=== PATIENT | female | born 1965 | race Caucasian/White ===

== ENCOUNTER → 2017-10-23 05:00 | Outpatient (REF) | payer MEDICARE, SELFPAY ==
[2017-10-23 08:06] LABS: Anion Gap 8 (5-15); BUN 20 mg/dL (7-18); BUN/Creat Ratio 29.2 RATIO (10-20); Calcium,Total 9.5 mg/dL (8.5-10.1); Chloride 105 mmol/L (98-107); Creatinine, Serum 0.69 mg/dL (0.55-1.02); EST Glomerular Filtration Rate 96 mL/min (>60); Est Glom Filt Rate - Afr Amer 116 mL/min (>60); Glucose 92 mg/dL (74-106); Potassium 3.5 mmol/L (3.5-5.1); Sodium Level 144 mmol/L (136-145)
== END ==
LOC: OLS.WCC 05:00
PROVIDERS: Visit Provider Family Medicine
DX: Z79.899 Other long term (current) drug therapy (principal); F03.90 Unspecified dementia, unspecified severity, without behavioral disturbance, psychotic disturbance, mood disturbance, and anxiety
CPT/HCPCS: 36415; 80048

== ENCOUNTER 2018-04-29 22:16 | Emergency (ER) | payer MEDICARE, SELFPAY ==
[2018-04-29 22:17] VITALS: BP 140/80; PULSE 107; RESP 14; TEMP 36.6; O2SAT 98; BMI 23.7
--- NOTE | 2018-04-29 22:56 | ED.DCSUM_ITS ---
- ER Visit Summary Date of Service: 04/29/18 Chief Complaint: [] G-tube came out History of Present Illness: The patient is a 52 F per the senior care and patient's caregiver the patient's G-tube came out this evening. They noticed that as they give her tube feeds in the evening. The patient is nonverbal due to mental retardation. The G-tube has been in chronically. Physical Examination: [] Vital signs reviewed General: Well-nourished well-developed chronic contractures Head: Normocephalic atraumatic Eyes: Pupils equal round and reactive to light extraocular movements intact ENT: TMs clear no hemotympanum no trauma Neck: Nontender full range of motion Cardiovascular: Regular rate rhythm no murmurs normal S1-S2 Respiratory: No distress clear to auscultation bilaterally chest nontender Abdomen: Soft nontender nondistended normal bowel sounds no masses a G-tube site clean dry and intact Back: Nontender no CVA tenderness Extremities: Nontender active range of motion ?4 extremities no trauma Skin: Normal color no trauma Neuro alert and comfortably with spasticity Test Results: [] Emergency Department Course and Treatment: [] G-tube was easily replaced. The patient will be discharged back to her facility. there is no complications. Treatment Plan: [] Disposition: [] Impression: [] G-tube dislodgment with new G-tube insertion This note was generated with [employer] dictation software. It may contain incorrect words, spelling, and punctuation that were not noted in review of the chart prior to signing ED Disposition - Plan for ED Patient: Chief Complaint: Other, Pain/Inj Referrals: Terell Cat MD [Primary Care Provider] -
--- NOTE | 2018-04-29 22:56 | ED.DEP ---
ED Disposition - Plan for ED Patient: Disposition: Home or Assisted Living Chief Complaint: Other, Pain/Inj Instructions: Gastrostomy Feeding Tube Care: [place] Referrals: Terell Cat MD [Primary Care Provider] -
--- OUTSIDE RECORDS SUMMARY | 2018-07-01 23:59 | XMS RPT_ITS ---
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 Community (current) drug Hospital therapy / Repository Z79.899(ICD-10) PROCEDURES PROCEDURES No Procedure Records FoundRESULTS RESULTS EMERGENCY DEPARTMENT Observed: 04/30/2018 Status: F Source: [place] SUMMARY 5:44 AM [facility] H[facility]PITAL REPOSITORY [facility] Medical Records Department [address] [place] [address] Emergency Department Summary 04/29/18 2255 MR#: [id number] Acct: [id number] Name: NETTE HEALY Rep #: [id number] : 1965 52 From: Lester Norman MD PCP: Terell Cat MD Status: DEP ER - ER Visit Summary Date of Service: 04/29/18 Chief Complaint: [] G-tube came out History of Present Illness: The patient is a 52 F per the half-way and patient's caregiver the patient's G-tube came out this evening. They noticed that as they give her tube feeds in the evening. The patient is nonverbal due to mental retardation. The G-tube has been in chronically. Physical Examination: [] Vital signs reviewed General: Well-nourished well-developed chronic contractures Head: Normocephalic atraumatic Eyes: Pupils equal round and reactive to light extraocular movements intact ENT: TMs clear no hemotympanum no trauma Neck: Nontender full range of motion Cardiovascular: Regular rate rhythm no murmurs normal S1-S2 Respiratory: No distress clear to auscultation bilaterally chest nontender Abdomen: Soft nontender nondistended normal bowel sounds no masses a G-tube site clean dry and intact Back: Nontender no CVA tenderness Extremities: Nontender active range of motion 4 extremities no trauma Skin: Normal color no trauma Neuro alert and comfortably with spasticity Test Results: [] Emergency Department Course and Treatment: [] G-tube was easily replaced. The patient will be discharged back to her facility. there is no complications. Treatment Plan: [] Disposition: [] Impression: [] G-tube dislodgment with new G-tube insertion This note was generated with [employer] dictation software. It may contain incorrect words, spelling, and punctuation that were not noted in review of the chart prior to signing ED Disposition - Plan for ED Patient: Chief Complaint: Other, Pain/Inj Referrals: Terell Cat MD [Primary Care Provider] - What to do if you have Problems For any increased pain, shortness of breath, bleeding, nausea or vomiting, chest pain, or any unexpected problems, contact your Primary Care Provider. Call [facility] ([phone]) or report to the closest Emergency Room. Call 911 if necessary. 04/30/18 0544 <Electronically signed by Lester Norman MD> Date Lester Norman MD Cosigner Signature (If Indicated): Date CC: Terell Cat MD DISCHARGE INSTRUCTION Observed: 04/30/2018 Status: F Source: [place] 5:44 AM [facility] REPOSITORY [facility] Medical Records Department [address] [address] Discharge Instruction 04/29/18 2256 MR#: [id number] Acct: [id number] Name: NETTE HEALY Rep #: [id number] : 1965 52 From: Lester Norman MD PCP: Terell Cat MD Status: DEP ER ED Disposition - Plan for ED Patient: Disposition: Home or Assisted Living Chief Complaint: Other, Pain/Inj Instructions: Gastrostomy Feeding Tube Care: [place] Referrals: Terell Cat MD [Primary Care Provider] - What to do if you have Problems For any increased pain, shortness of breath, bleeding, nausea or vomiting, chest pain, or any unexpected problems, contact your Primary Care Provider. Call [facility] ([phone]) or report to the closest Emergency Room. Call 911 if necessary. 04/30/18 0544 <Electronically signed by Lester Norman MD> Date Lester Norman MD Cosigner Signature (If Indicated): Date CC: Terell Cat MD BASIC METABOLIC Collected: 10/23/2017 Status: F Source: [place] PROFILE (BMP) 6:21 AM [facility] REPOSITORY TYPE CODE TESTS RESULT OUT OF RANGE REFERENCE UNITS LAB L501.0100 74-106 mg/dL Normal GLU 92 Result Comment: Please note revised GLUCOSE reference range effective 2017. LAB L501.1000 7-18 mg/dL High BUN 20 LAB L501.1100 0.55-1.02 mg/dL Normal CREAT,SERUM 0.69 Result Comment: The validity of the calculated GFR AND GFRAA in patients over 70 years has not been determined. Clinical correlation is essential. LAB L501.1110 >60 mL/min Normal EST GFR 96 Result Comment: Non- GFR Calc LAB L501.1115 >60 mL/min Normal EST GFR - AA 116 Result Comment: GFR Calc LAB L501.1300 10-20 RATIO High BUN/CRE 29.2 LAB L501.2200 8.5-10.1 mg/dL CA Normal 9.5 LAB L501.5300 136-145 mmol/L NA Normal 144 LAB L501.5600 3.5-5.1 mmol/L K Normal 3.5 LAB L501.5900 98-107 mmol/L CL Normal 105 LAB L501.6100 21.0-32.0 mmol/L Normal CO2 31.0 LAB L501.6200 5-15 Normal GAP 8 Performed By: #### L500.2500 #### [facility] [address] [place], [address] ALLERGIES ALLERGIES DATE TYPE / CODE NAME / CODE REACTION SEVERITY SOURCE 04/29/2018 Drug No Known Unknown [facility] Allergy/4160 Allergies/F00 Hospital 44333(SNOMED [id number](RXNOR Repository CT) M) ENCOUNTERS ENCOUNTERS ADMIT/DISCHARGE ACCOUNT ADMITTING ENCOUNTER LOCATION SOURCE NUMBER CLASS 04/29/2018/ [id number] Emergency [facility] 9 2 [facility] ing:ED Repository 10/23/2017 [id number] Ambulatory [facility] 1 [facility] ing:[facility] Repository PAYERS PAYERS ENCOUNTER GUARANTOR PAYER SUBSCRIBER SOURCE 04/29/2018 NETTE HEALY876 Primary NETTE HEALYDOB: Monster S [id number]IN [facility] CARE Number: Chana [place] [id number] [address]Lzc: Date:[id number] CLAIMS [address] [address] [address]KH: 04/29/2018 Secondary NOT GIVENUNK [place] Insurance:SELF PAY [facility] Number: Effective Repository Date:2018-04-29 10/23/2017 Nette Beckham [id number] Primary Nette OrtizB: Monster Ruiz Insurance:[facility] [id number] acute hospital *IN [facility] Care Number: Repository CenterWmiky, [id number] [address]Vsj: Date:[id number] CLAIMS [address] ) [address] [address]UR: 10/23/2017 Secondary NOT GIVENUNK [place] Insurance:SELF PAY [facility] Number: Effective Repository Date:2017-10-23
== END 2018-04-29 23:35 | disposition home or self-care (01) ==
PROVIDERS: Emergency Provider Emergency Medicine; Family Provider Family Medicine; PCP Family Medicine
DX: K94.23 Gastrostomy malfunction (principal); Y83.3 Surgical operation with formation of external stoma as the cause of abnormal reaction of the patient, or of later complication, without mention of misadventure at the time of the procedure; F79 Unspecified intellectual disabilities
CPT/HCPCS: 43762; 99284

== ENCOUNTER → 2018-10-23 | Outpatient (REF) | payer MEDICARE, SELFPAY ==
[2018-10-23 07:51] LABS: Anion Gap 7 (5-15); BUN 17 mg/dL (7-18); BUN/Creat Ratio 26.5 RATIO (10-20); Calcium,Total 9.3 mg/dL (8.5-10.1); Chloride 103 mmol/L (98-107); Creatinine, Serum 0.64 mg/dL (0.55-1.02); EST Glomerular Filtration Rate 103 mL/min (>60); Est Glom Filt Rate - Afr Amer 125 mL/min (>60); Glucose 105 mg/dL (74-106); Potassium 3.5 mmol/L (3.5-5.1); Sodium Level 140 mmol/L (136-145)
== END | disposition home or self-care (01) ==
LOC: OLS.WCC 05:00
PROVIDERS: Visit Provider Family Medicine
DX: F03.90 Unspecified dementia, unspecified severity, without behavioral disturbance, psychotic disturbance, mood disturbance, and anxiety (principal); Z79.899 Other long term (current) drug therapy
CPT/HCPCS: 36415; 80048

== ENCOUNTER → 2019-10-23 05:00 | Outpatient (REF) | payer MEDICARE, MEDICAID, SELFPAY ==
[2019-10-23 08:40] LABS: Anion Gap 5 (5-15); BUN 21 mg/dL (7-18); BUN/Creat Ratio 33.8 RATIO (10-20); Calcium,Total 9.1 mg/dL (8.5-10.1); Chloride 103 mmol/L (98-107); Creatinine, Serum 0.62 mg/dL (0.55-1.02); EST Glomerular Filtration Rate 107 mL/min (>60); Est Glom Filt Rate - Afr Amer 129 mL/min (>60); Glucose 114 mg/dL (74-106); Potassium 3.6 mmol/L (3.5-5.1); Sodium Level 140 mmol/L (136-145)
== END ==
LOC: OLS.WCC 05:00
PROVIDERS: PCP Family Medicine; Visit Provider Family Medicine
DX: F03.90 Unspecified dementia, unspecified severity, without behavioral disturbance, psychotic disturbance, mood disturbance, and anxiety (principal); Z79.899 Other long term (current) drug therapy
CPT/HCPCS: 36415; 80048

== ENCOUNTER → 2019-12-02 14:02 | Outpatient (REF) | payer MEDICARE, MEDICAID, SELFPAY | LOC: OLS.WCC 14:02 | PROVIDERS: PCP Family Medicine; Referring Provider Family Medicine; Visit Provider Family Medicine | DX: Z20.828 Contact with and (suspected) exposure to other viral communicable diseases (principal) | CPT/HCPCS: 87635; U0003 ==

== ENCOUNTER → 2020-06-13 14:00 | Outpatient (REF) | payer MEDICARE, MEDICAID, SELFPAY | LOC: OLS.WCC 14:00 | PROVIDERS: PCP Family Medicine; Referring Provider Family Medicine; Visit Provider Family Medicine | DX: T14.8XXA Other injury of unspecified body region, initial encounter (principal) | CPT/HCPCS: 87070; 87077; 87186; 87205 ==

== ENCOUNTER → 2020-10-24 05:00 | Outpatient (REF) | payer MEDICARE, MEDICAID, SELFPAY ==
[2020-10-24 09:02] LABS: Anion Gap 7 (5-15); BUN 22 mg/dL (7-18); BUN/Creat Ratio 31.8 RATIO (10-20); Calcium,Total 9.2 mg/dL (8.5-10.1); Chloride 103 mmol/L (98-107); Creatinine, Serum 0.69 mg/dL (0.55-1.02); EST Glomerular Filtration Rate 94 mL/min (>60); Est Glom Filt Rate - Afr Amer 114 mL/min (>60); Glucose 100 mg/dL (74-106); Potassium 3.9 mmol/L (3.5-5.1); Sodium Level 139 mmol/L (136-145)
== END ==
LOC: OLS.WCC 05:00
PROVIDERS: Visit Provider Family Medicine
DX: E11.9 Type 2 diabetes mellitus without complications (principal); Z79.899 Other long term (current) drug therapy
CPT/HCPCS: 36415; 80048

== ENCOUNTER → 2021-05-01 | Outpatient (REF) | payer MEDICARE, MEDICAID, SELFPAY | END | disposition home or self-care (01) | LOC: OLS.WCC 15:30 | PROVIDERS: PCP Family Medicine; Visit Provider Family Medicine | DX: Z20.822 Contact with and (suspected) exposure to COVID-19 (principal) | CPT/HCPCS: 87635; U0003; U0005 ==

== ENCOUNTER → 2021-06-21 | Outpatient (REF) | payer MEDICARE, MEDICAID, SELFPAY | END | disposition home or self-care (01) | LOC: OLS.WCC 22:48 | PROVIDERS: PCP Family Medicine; Referring Provider Family Medicine; Visit Provider Family Medicine | DX: T85.79XA Infection and inflammatory reaction due to other internal prosthetic devices, implants and grafts, initial encounter (principal) | CPT/HCPCS: 87070; 87077; 87186; 87205 ==

== ENCOUNTER → 2021-10-23 04:00 | Outpatient (REF) | payer MEDICARE, MEDICAID, SELFPAY ==
[2021-10-23 08:54] LABS: Anion Gap 6 (5-15); BUN 16 mg/dL (7-18); BUN/Creat Ratio 25.9 RATIO (10-20); Calcium,Total 9.3 mg/dL (8.5-10.1); Chloride 102 mmol/L (98-107); Creatinine, Serum 0.62 mg/dL (0.55-1.02); EST Glomerular Filtration Rate 107 mL/min (>60); Est Glom Filt Rate - Afr Amer 129 mL/min (>60); Glucose 94 mg/dL (74-106); Potassium 3.9 mmol/L (3.5-5.1); Sodium Level 138 mmol/L (136-145)
== END ==
LOC: OLS.WCC 04:00
PROVIDERS: PCP Family Medicine; Referring Provider Family Medicine; Visit Provider Family Medicine
DX: F03.90 Unspecified dementia, unspecified severity, without behavioral disturbance, psychotic disturbance, mood disturbance, and anxiety (principal); Z79.899 Other long term (current) drug therapy
CPT/HCPCS: 36415; 80048

== ENCOUNTER → 2022-10-23 | Outpatient (REF) | payer MEDICARE, MEDICAID, SELFPAY ==
[2022-10-23 09:39] LABS: Anion Gap 3 (5-15); BUN 12 mg/dL (7-18); BUN/Creat Ratio 21.6 RATIO (10-20); Calcium,Total 8.8 mg/dL (8.5-10.1); Chloride 106 mmol/L (98-107); Creatinine, Serum 0.56 mg/dL (0.55-1.02); EST Glomerular Filtration Rate 120 mL/min (>60); Est Glom Filt Rate - Afr Amer 145 mL/min (>60); Glucose 119 mg/dL (74-106); Potassium 3.9 mmol/L (3.5-5.1); Sodium Level 138 mmol/L (136-145)
== END ==
LOC: OLS.WCC 05:00
PROVIDERS: PCP Family Medicine; Visit Provider Family Medicine
DX: F03.90 Unspecified dementia, unspecified severity, without behavioral disturbance, psychotic disturbance, mood disturbance, and anxiety (principal); Z93.1 Gastrostomy status; Z79.899 Other long term (current) drug therapy
CPT/HCPCS: 36415; 80048

== ENCOUNTER → 2023-10-24 | Outpatient (REF) | payer MEDICARE, MEDICAID, SELFPAY ==
[2023-10-24 07:57] LABS: Anion Gap 6 (5-15); BUN 17 mg/dL (7-18); BUN/Creat Ratio 27.8 RATIO (10-20); Calcium,Total 9.3 mg/dL (8.5-10.1); Chloride 106 mmol/L (98-107); Creatinine, Serum 0.61 mg/dL (0.55-1.02); EST Glomerular Filtration Rate 107 mL/min (>60); Est Glom Filt Rate - Afr Amer 130 mL/min (>60); Glucose 125 mg/dL (74-106); Potassium 3.8 mmol/L (3.5-5.1); Sodium Level 138 mmol/L (136-145)
== END ==
LOC: OLS.WCC 05:00
PROVIDERS: PCP Family Medicine; Visit Provider Family Medicine
DX: F03.90 Unspecified dementia, unspecified severity, without behavioral disturbance, psychotic disturbance, mood disturbance, and anxiety (principal); Z93.1 Gastrostomy status; Z79.899 Other long term (current) drug therapy
CPT/HCPCS: 36415; 80048

== ENCOUNTER 2024-07-29 15:25 | Emergency (ER) | payer MEDICARE, MEDICAID, SELFPAY ==
[2024-07-29 15:26] VITALS: BP 130/99; PULSE 117; RESP 18; TEMP 37; O2SAT 96; BMI 30.4
--- NOTE | 2024-07-29 15:50 | RAD_ITS ---
PROCEDURE: ABDOMEN SINGLE VIEW 07/29/2024 REASON FOR EXAM: CONSTIPATION ?? TECHNIQUE: Two views of the abdomen COMPARISON: None FINDINGS: See impression RAD/Abdomen Single View IMPRESSION: Mild/moderate fecal retention. Mild gas throughout the colon also noted. No a bnormal bowel dilation to suggest high-grade obstruction. No suspicious intra-abdominal calcifications. Moderate thoracolu mbar levoscoliosis. Lung bases are clear. Gastrostomy tube overlying the stomach. Reading Location: [facility]
--- NOTE | 2024-07-29 15:51 | ED.VIS.GI ---
HPI HPI - GI History of Present Illness Chief Complaint: Constipation Informant: other (Patient nonverbal. Does not speak really communicate.) Narrative Narrative: 58-year-old female from a local extended-care facility. Patient is nonverbal. Reportedly sent in for distended abdomen unsure when her last bowel movement is. PFSH PFSH Home Medications ?Medication ?Instructions ?Recorded ?Last Taken ?Type baclofen 10 mg tablet 10 mg G-tube TID 09/22/14 12/03/14 History 10 MG morphine concentrate 20 mg/mL oral 0.756 ml G-tube Q4H 12/03/14 12/03/14 History syringe (FOR ORAL USE ONLY) 0.5 ML acetaminophen 650 mg rectal 650 mg RECTAL Q4H PRN PRN Fever 05/17/15 Unknown History suppository bisacodyl 10 mg rectal suppository 10 mg RECTAL DAILY PRN PRN 05/17/15 Unknown History Constipation chlorhexidine gluconate 0.12 % 15 ml MM TID 05/17/15 Unknown History mouthwash (Peridex) lactulose 10 gram/15 mL oral 30 ml G-tube DAILY 05/17/15 Unknown History solution lorazepam 1 mg tablet 1 mg G-tube TID 05/17/15 Unknown History magnesium hydroxide 400 mg/5 mL 30 ml G-tube DAILY PRN PRN 05/17/15 Unknown History oral suspension Constipation lactose-reduced food with fiber 70 ml G-tube Q12H 05/20/15 Unknown History 0.06 gram-1.5 kcal/mL oral liquid (Jevity 1.5 Rl) fentanyl 37.5 mcg/hour transdermal 1 ea transdermal QWEEK 04/29/18 Unknown History patch olanzapine 5 mg tablet 5 mg G-tube BID 04/29/18 Unknown History Allergy/AdvReac Type Severity Reaction Status Date / Time No Known Allergies Allergy Verified 04/29/18 22:17 Social History Smoking Status: Never smoker ROS ROS ED ROS Narrative Patient is unable to give any history due to her overall medical condition. She is reportedly nonverbal Review of Systems ROS Unobtainable: due to encephalopathy and due to mental condition EXAM Physical Exam Narrative Exam Narrative: 58-year-old female sitting upright in bed. Eyes are open. Nonverbal. Vital signs are stable initial blood pressure 130/99. Heart rate 117. Temperature 98.6. She does not look septic or toxic. H EENT exam pupils round reactive to light. Mytrex membranes. Neck nontender. Lungs clear. Heart tachycardic no murmur rate about 115. Abdomen is distended there are positive bowel sounds. No hernia or mass. No obvious obstruction. Extremities are flaccid. Contractures both feet and ankles and the hands and wrists. Neurologically she does open her eyes. She is nonverbal. She is unable to follow any commands. Const Vital Signs: 07/29/24 15:26 07/29/24 17:25 Temperature 98.6 F Temperature Source Temporal Pulse Rate 117 H 99 Respiratory Rate 18 14 Blood Pressure 130/99 H 124/93 H Blood Pressure Mean 109 103 Pulse Ox 96 95 Oxygen Delivery Method Room Air Room Air Positive well nourished, well developed and contractures; Negative for cachectic General Appearance ED: well developed and contractures; Negative for cachectic or pallor Nutritional Appearance: Negative for cachectic HEENT Reports moist mucous membranes normocephalic and atraumatic Eyes PERRL and EOMs intact bilaterally Neck no lymphadenopathy, supple and no JVD Resp normal respiratory effort and clear to auscultation bilaterally Cardio regular rhythm, S1 normal heart sound, S2 normal heart sound and no murmurs; Negative for regular rate Rate: tachycardic GI non-tender and no masses; Negative for non-distended Inspection: abdominal distention Auscultation: normoactive bowel sounds Palpation: soft; Negative for tender, guarding, rigid, hernia, mass, pulsatile mass or rebound tenderness present Back/Spine no CVA tenderness Cervical Spine: Negative for cervical spine tenderness Thoracic Spine / Upper Back: Negative for thoracic spinal tenderness Lumbar Spine / Lower Back: Negative for lumbar spinal tenderness Extremity Negative for full ROM General Extremety ED: Negative for edema or tenderness General Extremity: Negative for edema Neuro No CN's II-XII intact bilaterally, No moves all extremities and No gait normal Sensorium / Orientation: alert; Negative for oriented to person, oriented to place or oriented to time Motor Exam: Negative for strength 5/5 throughout Psych Negative for mental status grossly normal or thought process normal Psych Narrative: Patient nonverbal does not communicate she will open her eyes. Skin no wounds General Skin Exam: Negative for jaundice or pallor Lesions: no lesions Rashes: no rashes Trauma: Negative for abrasion MDM MDM MDM Narrative Medical decision making narrative: 58-year-old female from [facility] that is nonverbal and DNR comfort care presents with distended abdomen. I spoke to a nurse at their facility. She tells me that the patient is been having bowel movements. They give her simethicone twice a day. She has had these issues for the last 2 months. Today they tried an enema and suppository without any significant relief or bowel movement so they sent her in to be evaluated. They state that the patient has not had a fever nor vomiting nor diarrhea recently. History & Record Review Discussion w/independent historian: EMS personnel and Other ([facility] nurse.) Additional record(s) reviewed:: Prior inpatient record, Prior outpatient record, Prior ED visit and Prior labs Lab Data Attestation: I reviewed the patient's lab results. Lab results narrative: CBC shows white count 11.1. H&H 13 and 40. Platelets 388. Chemistries show sodium 138. Gap 12. BUN and creatinine 16 and 0.54. Glucose 108. Liver enzymes elevated with AST 128. ALT of 90. Alk phos of 335. Amylase normal at 42. Lipase normal at 31. Lactic acid is 1.5 and normal. Urinalysis is negative. No nitrites. No white or red cells. No bacteria. Right CAT scan of the abdomen shows a right breast mass with metastases to the lymph nodes, liver, thoracic spine with compression fracture. Patient's power of sports attorney is her brother he is here in the emergency department I let him know all this. Patient is DNR they would not want any advanced treatment for this. He understands it is very advanced cancer at this time. Labs: Laboratory Results - last 24 hr 07/29/24 07/29/24 16:21 16:25 WBC 11.1 H RBC 4.34 Hgb 13.2 Hct 40.9 MCV 94.2 MCH 30.4 MCHC 32.3 RDW Std Deviation 44.8 H RDW Coeff of Michael 13.0 Plt Count 388 MPV 11.1 Immature Gran % (Auto) 0.400 Neut % (Auto) 78.3 H Lymph % (Auto) 11.7 L Newton % (Auto) 6.9 Eos % (Auto) 2.3 Baso % (Auto) 0.4 Absolute Neuts (auto) 8.7 H Absolute Lymphs (auto) 1.30 Nucleated RBC % 0 Sodium 138 Potassium 4.3 Chloride 102 Carbon Dioxide 24.1 Anion Gap 12 BUN 16 Creatinine 0.54 L Estim Creat Clear Calc 97.37 Est GFR (MDRD) Non-Af 108 BUN/Creatinine Ratio 29.1 H Glucose 108 H Lactic Acid 1.5 Calcium 9.6 Total Bilirubin 0.65 AST 128 H ALT 90 H Alkaline Phosphatase 335 H Total Protein 7.8 Albumin 3.4 L Globulin 4.4 H Albumin/Globulin Ratio 0.8 L Amylase 42 Lipase 31 Urine Color Yellow Urine Clarity Clear Urine pH 7.0 Ur Specific Stuart 1.015 Urine Protein TNP Urine Glucose (UA) Normal Urine Ketones Negative Urine Occult Blood 25 H Urine Nitrite Negative Urine Bilirubin Negative Urine Urobilinogen 4 H Ur Leukocyte Esterase 25 H Urine RBC 0-5 SEEN Urine WBC 0-5 SEEN Ur Squamous Epith Cells 0-5 SEEN Urine Bacteria 0 SEEN Urine Mucus 0 SEEN U Random Total Protein 18.6 H Radiography Diagnostic Testing: Clinical Impression(s) from Imaging Studies KUB X-Ray 07/29/24 15:50 IMPRESSION: Mild/moderate fecal retention. Mild gas throughout the colon also noted. No abnormal bowel dilation to suggest high-grade obstruction. No suspicious intra-abdominal calcifications. Moderate thoracolumbar levoscoliosis. Lung bases are clear. Gastrostomy tube overlying the stomach. Reading Location: [facility] Abdomen/Pelvis CT 07/29/24 16:50 IMPRESSION: 1. Spiculated right breast mass measuring 2.5 cm concerning for primary malignancy. 2. Enlarged right subpectoral lymph nodes and AP window lymph node concerning for metastatic disease. 3. Innumerable metastatic lesions throughout the liver. 4. Mild/moderate compression fracture deformity of T8 width mixed lucency/sclerosis concerning for metastatic disease. 5. Trace bilateral pleural effusions with adjacent atelectasis. 6. Mild rectal wall thickening which may relate to underdistention or proctitis. Please correlate. Reading Location: [facility] Discharge Plan Triage Chief Complaint: Constipation ED Provider: Tin Hernandez Dx/Rx/DC Orders Clinical Impression: Constipation, Breast cancer metastasized to bone, Breast cancer metastasized to intrathoracic lymph node, Breast cancer metastasized to liver Instructions: ED Constipation (Adult) Prescriptions: No Action baclofen 10 MG tablet 10 mg G-tube TID morphine concentrate 20 MG/ML syringe 0.756 ml G-tube Q4H acetaminophen 650 MG suppository 650 mg RECTAL Q4H PRN PRN (Reason: Fever) Patient Comments: fever magnesium hydroxide 30 ML suspension 30 ml G-tube DAILY PRN PRN (Reason: Constipation) Patient Comments: constipation bisacodyl 10 MG suppository 10 mg RECTAL DAILY PRN PRN (Reason: Constipation) Patient Comments: constipation lorazepam 1 MG tablet 1 mg G-tube TID Patient Comments: anxiety lactulose 10 GM/15 ML solution 30 ml G-tube DAILY chlorhexidine gluconate [Peridex] 15 ML mouthwash 15 ml MM TID lactose-reduced food with fibr [Jevity 1.5 Rl] 1,000 ML bottle 70 ml G-tube Q12H Patient Comments: on at 5pm, off at 5am fentanyl 1 EACH patch 72 hour 1 ea transdermal QWEEK Rx Instructions: EVERY 3 DAYS. olanzapine 5 tablet 5 mg G-tube BID Primary Care Provider: Terell Cat Referrals: Terell Cat MD [Primary Care Provider] - As Needed Activity Restrictions/Additional Instructions: Patient has constipation. In the workup we did a CAT scan because the abdominal film was not that impressive. The CAT scan found right sided breast cancer with metastasis to her lymph nodes, throughout the liver and thoracic spine with a thoracic compression fracture. I did discuss this with her brother who was at bedside and is her power of sports attorney. Treat the constipation with MiraLAX and/or stool softener. Print Language: Italian Disposition Disposition: Home, Self Care
[2024-07-29] MEDS: 0.9% Normal Saline (1000mL) 1,000 ML 999 ML IV (16:29)
[2024-07-29 16:34] LABS: Absolute Neutrophil Count 8.7 X10^3/uL (2.0-7.7); Basophil# 0.05 X10^3/uL; Basophil% 0.4 % (0-1); Eosinophil# 0.26 X10^3/uL; Eosinophils% 2.3 % (0-5); Hematocrit 40.9 % (37-47); Hemoglobin 13.2 g/dL (12.0-15.0); Lymphocyte % 11.7 % (19-41); Mean Corp Hgb Conc 32.3 g/dL (32-36); Mean Corpuscular Hgb 30.4 pg (27.0-32.0); Mean Corpuscular Volume 94.2 fL (81-99); Mean Platelet Vol. 11.1 fl (6.2-12.0); Monocyte# 0.77 X10^3/uL; Monocyte% 6.9 % (0-10); NRBC Flagged by Analyzer 0 % (0-5); Neutrophil # 8.72 X10^3/uL (2.7-7.7); Neutrophil % 78.3 % (47-70); Platelet Count 388 K/mm3 (150-450); RBC Distribution Width SD 44.8 fl (35.1-43.9); Red Blood Count 4.34 M/mm3 (4.2-5.4); White Blood Count 11.1 K/mm3 (4.4-11.0)
[2024-07-29 16:39] LABS: Bacteria 0 SEEN /hpf (None Seen); Mucous, Urine 0 SEEN /hpf (<or=2+)
--- NOTE | 2024-07-29 16:50 | CT_ITS ---
PROCEDURE: ABDOMEN/PELVIS W IV CONT ONLY 07/29/2024 REASON FOR EXAM: ABD DISTENTION TECHNIQUE: Abdomen and pelvis CT with intravenous contrast. Coronal and Sagittal reconstruction series were provided. One or more dose reduction techniques were used (e.g., Automated exposure control, adjustment of the mA and/or kV according to patient size, use of iterative reconstruction technique. COMPARISON: None FINDINGS: Small bilateral pleural effusions. Moderate right lower lobe atelectasis. Prominent AP window lymph node measuring 9 mm in short axis. Innumerable hypodense lesions throughout the liver, 1 of the largest in the left lobe measuring up to 6 cm. Spleen, pancreas and adrenal glands are intact. Mild diffuse gallbladder wall thickening. No significant pericholecystic fluid. No biliary ductal dilation. Kidneys enhance symmetrically. No suspicious renal mass, calculi or hydronephrosis. Urinary bladder is decompressed. Uterus is present. Moderate diffuse rectal wall thickening. Fecal retention. No bowel obstruction or significant perienteric inflammation. No pelvic free fluid. No free air. No abdominal aortic aneurysm. Spiculated subareolar mass in the right breast measuring 2.5 x 2.1 x 2.4 cm with adjacent skin thickening. A couple mildly enlarged right subpectoral lymph nodes, largest measuring up to 1.5 cm. Mixed lytic/sclerotic lesion involving the T8 vertebral body with superimposed mild/moderate compression fracture deformity. No other discrete lytic lesions. CT/Abdomen/Pelvis W IV Cont ONLY IMPRESSION: 1. Spiculated right breast mass measuring 2.5 cm concerning for primary maligna ncy. 2. Enlarged right subpectoral lymph nodes and AP window lymph node concerning f or metastatic disease. 3. Innumerable metastatic lesions throughout the liver. 4. Mild/moderate compression fracture deformity of T8 width mixed lucency/scler osis concerning for metastatic disease. 5. Trace bilateral pleural effusions with adjacent atelectasis. 6. Mild rectal wall thickening which may relate to underdistention or proctitis . Please correlate. Reading Location: [facility]
[2024-07-29 16:55] LABS: Color, Urine Yellow (Yellow); Glucose, Dipstick Normal (Normal); Ketone-Dipstick Negative (Negative); Leukocyte Esterase-Dipstick 25 /ul (Negative); Nitrite-Dipstick Negative (Negative); Occult Blood-Urine 25 /ul (Negative); Specific Gravity, Urine 1.015 (1.002-1.030); Urine Bilirubin Dipstick Negative (Negative); Urine Clarity Clear (Clear); Urine Urobilinogen 4 mg/dl (Normal)
[2024-07-29 16:57] LABS: Lactic Acid 1.5 mmol/L (0.0-2.0)
[2024-07-29 17:03] LABS: Red Blood Cells-Urine 0-5 SEEN /hpf (0-5); Squamous Epithelial Cells - UA 0-5 SEEN /hpf (5-10); White Blood Cells 0-5 SEEN /hpf (0-5)
[2024-07-29 17:25] VITALS: BP 124/93; PULSE 99; RESP 14; O2SAT 95
[2024-07-29 17:32] LABS: Protein, Urine (Random) 18.6 mg/dL (0.0-12.0)
[2024-07-29 18:01] LABS: ALB/GLOB Ratio 0.8 RATIO (0.9-2.4); AST(SGOT) 128 U/L (<=31); Alanine Aminotransfer ALT/SGPT 90 U/L (<=34); Albumin, Serum 3.4 g/dL (3.5-5.0); Alkaline Phosphatase 335 U/L (35-104); Amylase 42 U/L (28-100); Anion Gap 12 (5-15); BUN 16 mg/dL (4-19); BUN/Creat Ratio 29.1 RATIO (10-20); Calcium,Total 9.6 mg/dL (7.6-11.0); Carbon Dioxide 24.1 mmol/L (21.0-32.0); Chloride 102 mmol/L (98-108); Creatinine, Serum 0.54 mg/dL (0.70-1.20); EST Glomerular Filtration Rate 108 (>60); Estimated Creatinine Clearance 97.37 ml/min (50-250); Globulin 4.4 g/dL (2.2-4.2); Glucose 108 mg/dL (70-99); Lipase 31 U/L (13-75); Potassium 4.3 mmol/L (3.3-5.1); Protein, Total 7.8 g/dL (5.9-8.4); Sodium Level 138 mmol/L (133-145); Total Bilirubin 0.65 mg/dL (0.00-1.30)
[2024-07-29 18:31] VITALS: BP 124/93; PULSE 99; RESP 14; TEMP 36.3; O2SAT 95
[2024-07-29 19:00] VITALS: BP 119/70; PULSE 91; RESP 18; O2SAT 94
== END 2024-07-29 21:09 | disposition home or self-care (01) ==
PROVIDERS: Emergency Provider Emergency Medicine; PCP Family Medicine; Visit Provider Emergency Medicine
DX: K59.00 Constipation, unspecified (principal); C77.1 Secondary and unspecified malignant neoplasm of intrathoracic lymph nodes; C78.7 Secondary malignant neoplasm of liver and intrahepatic bile duct; C79.52 Secondary malignant neoplasm of bone marrow; C50.919 Malignant neoplasm of unspecified site of unspecified female breast; R14.0 Abdominal distension (gaseous)
CPT/HCPCS: 51702; 74018; 74177; 80053; 81001; 82150; 83605; 83690; 84156; 85025; 96360; 96361; 99285; P9612; Q9967; A4216

== ENCOUNTER → 2024-10-26 | Outpatient (REF) | payer MEDICARE, MEDICAID, SELFPAY ==
[2024-10-26 09:12] LABS: Anion Gap 11 (5-15); BUN 23 mg/dL (4-19); BUN/Creat Ratio 45.5 RATIO (10-20); Calcium,Total 10.7 mg/dL (7.6-11.0); Carbon Dioxide 23.6 mmol/L (21.0-32.0); Chloride 103 mmol/L (98-108); Glucose 116 mg/dL (70-99); Potassium 4.2 mmol/L (3.3-5.1)
== END ==
LOC: OLS.WCC 05:35
PROVIDERS: PCP Family Medicine; Referring Provider Family Medicine; Visit Provider Family Medicine
DX: Z79.899 Other long term (current) drug therapy (principal)
CPT/HCPCS: 36415; 80048